=== PATIENT | male | born 1955 | race Caucasian/White ===

== ENCOUNTER 2016-06-30 08:15 | Emergency (ER) | payer OTHER ==
[2016-06-30 08:24] VITALS: BP 106/81; PULSE 95; TEMP 98.1; BMI 23.8
[2016-06-30] MEDS ORDERED: diphenhydrAMINE HCL 25 MG CAPSULE (FP) PO ONE ×2 (08:36→08:41)
[2016-06-30] MEDS ORDERED: DEXAMETHASONE SOD PHOSPHATE 10 MG/1 ML VIAL IM ONE (08:36)
[2016-06-30] MEDS ORDERED: DEXAMETHASONE SOD PHOSPHATE 10 MG/1 ML VIAL ONE (08:41)
--- NOTE | 2016-06-30 08:56 | PDOC ---
History of Present Illness - General Chief Complaint: Rash Stated Complaint: RASH Time Seen by Provider: 06/30/16 08:51 History Source: Patient Exam Limitations: No Limitations - History of Present Illness Initial Comments: CHIEF COMPLAINT: 60 y/o afebrile male with no significant PMH, worker at [employer], c/o itchy rash to arms and legs x 1 week. HISTORY OF PRESENT ILLNESS: The patient states he ate pork and orange juice 1 week ago and developed an itchy rash on his legs afterwards. He states he started using some cream and antibacterial soap and the rash became worse and is now on his arms. He denies f/c, cough, facial swelling, lip/tongue swelling , feeling of throat closing, SOB, and all other symptoms. Vital signs on arrival are notable for pulse of 95. REVIEW OF SYSTEMS: GENERAL/CONSTITUTIONAL: No fever/chills. No weakness. No weight change. HEAD, EYES, EARS, NOSE AND THROAT: No change in vision. No ear pain or discharge. No sore throat. CARDIOVASCULAR: No chest pain or shortness of breath. RESPIRATORY: No cough, wheezing, or hemoptysis. GASTROINTESTINAL: No abd pain, nausea, vomiting, diarrhea. GENITOURINARY: No dysuria, frequency, or change in urination. MUSCULOSKELETAL: No joint or muscle swelling or pain. No neck or back pain. SKIN: +itchy rash to hands and feet. NEUROLOGIC: No headache, vertigo, loss of consciousness, or loss of sensation. PHYSICAL EXAM: GENERAL: The patient is awake, alert, and fully oriented, in no acute distress. HEAD: Normal with no signs of trauma. ENT: Pupils equal, round and reactive to light, extraocular movements intact, sclera anicteric, conjunctiva clear. No facial or tongue swelling. LUNGS: Clear to auscultation bilaterally. Normal excursion. No respiratory distress or use of accessory muscles. CV: RRR, S1/S2, no MRG. Cap refill < 2 sec. ABDOMEN: Soft, non-distended, non-tender even to deep palpation, no hepatomegaly or splenomegaly, no masses. EXTREMITIES: Normal range of motion, no edema. NEUROLOGICAL: Normal speech, normal gait. CN II-XII grossly intact. PSYCH: Normal mood, normal affect. SKIN: +raised, erythematous, blanching hives to b/l LEs and b/l UEs. Past History - Past Medical History Allergies/Adverse Reactions: Allergies Allergy/AdvReac Type Severity Reaction Status Date / Time No Known Drug Allergies Allergy Verified 06/30/16 08:24 Home Medications: Ambulatory Orders Prednisone [Deltasone -] 40 mg PO DAILY #8 tablet 06/30/16 Anemia: No Asthma: No Cancer: No Cardiac Disorders: No CVA: No COPD: No CHF: No Dementia: No Diabetes: No GI Disorders: No Disorders: Yes (PROSTATE) HTN: No Hypercholesterolemia: No Liver Disease: No Suicide Attempt (Hx): No Seizures: No Thyroid Disease: No - Surgical History Abdominal Surgery: No Appendectomy: No Cardiac Surgery: No Cholecystectomy: No Lung Surgery: No Neurologic Surgery: No Orthopedic Surgery: No - Immunization History Td Vaccination: Yes TDAP Vaccination: Yes Immunization Up to Date: Yes - Psycho/Social/Smoking Cessation Hx Anxiety: No Suicidal Ideation: No Smoking Status: No Smoking History: Former smoker Have you smoked in the past 12 months: No Number of Cigarettes Smoked Daily: 0 Information on smoking cessation initiated: No Hx Alcohol Use: No Drug/Substance Use Hx: No Substance Use Type: None Hx Substance Use Treatment: No *Physical Exam - Vital Signs Last Vital Signs Temp Pulse Resp BP Pulse Ox 98.1 F 95 H 18 106/81 98 06/30/16 08:20 06/30/16 08:20 06/30/16 08:20 06/30/16 08:20 06/30/16 08:20 ED Treatment Course - Medications Given in the ED: ED Medications Discontinued Medications Generic Name Dose Route Start Last Admin Trade Name Albanq PRN Reason Stop Dose Admin Dexamethasone Sodium Phosphate 10 mg 06/30/16 08:36 06/30/16 08:45 Decadron Injection - IM 06/30/16 08:37 10 mg ONCE ONE Administration Diphenhydramine HCl 25 mg 06/30/16 08:36 06/30/16 08:45 Benadryl - PO 06/30/16 08:37 25 mg ONCE ONE Administration Medical Decision Making - Medical Decision Making A/P: 60 y/o afebrile male with hives. Plan is as follows: 1. IM Decadron 2. PO benadryl Will send rx for 4 days of prednisone. INstructed the aptient to stop using the new soap and cream he was using. Suggested benadryl for added itch relief. Pt instructed to return to the ER with any worsening or concerning symptoms. The patient verbalizes understanding of all instructions, has no further questions and is awaiting discharge. *DC/Admit/Observation/Transfer Diagnosis at time of Disposition: Urticaria, Allergic reaction - Discharge Dispostion Disposition: HOME Condition at time of disposition: Good - Referrals Referrals: Gris Evans MD [Primary Care Provider] - Call tomorrow - Patient Instructions Printed Discharge Instructions: DI for Hives, DI for General Allergic Reactions Additional Instructions: Discharge INstructions: -Take over the counter benadyl for itching -Take medication as prescribed; it was called to your pharmacy -Do not use the cream and soap you were using for the rash -Follow up with Dr. Evans within 1 week -Return to the ER with any worsening or concerning symptoms. - Post Discharge Activity Work/School Note: Back to Work
== END 2016-06-30 09:01 | disposition home or self-care (01) ==
LOC: JERFT 08:15
PROC: 3E033GC Introduction of Other Therapeutic Substance into Peripheral Vein, Percutaneous Approach (ICD-10-PCS; principal; 2016-06-30)
DX: L50.9 Urticaria, unspecified (principal); T78.40XA Allergy, unspecified, initial encounter; X58.XXXA Exposure to other specified factors, initial encounter; Z87.891 Personal history of nicotine dependence
CPT/HCPCS: 99281-25